=== PATIENT | female | born 1995 | race Caucasian/White ===

== ENCOUNTER → 2021-12-23 09:00 | Outpatient (BNVA) | payer OTHER, SELFPAY | PROVIDERS: Visit Provider Nurse Practitioner Women's Health | DX: N92.6 Irregular menstruation, unspecified (principal) | CPT/HCPCS: 81025 ==

== ENCOUNTER 2022-01-06 12:09 | Emergency (ER) | payer OTHER, SELFPAY ==
[2022-01-06 12:22] VITALS: BP 135/80; PULSE 84; RESP 16; TEMP 37.2; O2SAT 100; BMI 40.4
--- NOTE | 2022-01-06 12:27 | US_ITS ---
WS: [id number] ULTRASOUND EARLY TECHNIQUE: Transabdominal sonography of the pelvis was performed. Followed by transvaginal sonography to better evaluate the uterus and ovaries. CLINICAL INFORMATION: LMP: 11/04/2021 Beta hCG: Unknown. COMPARISON: None. FINDINGS: UTERUS AND GESTATIONAL SAC Intrauterine gestations: Single intrauterine gestation with cardiac activity. pole measures 2.1 cm. Estimated gestational age: 8w5d. Estimated delivery August 13, 2022 Yolk sac: 0.4 cm. [place] rump length (CRL): 2.1 cm. heart motion: 171 BPM. Subchorionic hemorrhage: Measuring 3.2 x 2.5 x 3.3 cm OVARIES Right ovary: Normal. Left ovary: Normal. FREE FLUID Small amount of free fluid US/US OB <=14 wk fetus w transvag IMPRESSION: 1. Single live intrauterine with pole. 2. Estimated gestational age; 8w5d with estimated delivery August 13, 2022 3. Subchorionic hemorrhage measuring 3.2 x 2.5 x 3.3 cm. Recommend short inter sharon follow-up 4. Normal adnexa. 5. Small amount of free fluid in the cul-de-sac and cervical canal.
[2022-01-06] MEDS: acetaminophen 500 mg Tablet PO (12:35)
[2022-01-06] MEDS: sodium chloride 0.9% 1,000 ML 999 ML IV (12:36)
--- NOTE | 2022-01-06 12:36 | ED_ITS ---
HPI - General Adult General: Chief complaint: Back Pain/Injury Stated complaint: 9 weeks , abd pains Time Seen by Provider: 01/06/22 12:27 History of Present Illness: Patient is a 26-year-old female G3, P1 with history of prior appendectomy presenting to the emergency room with acute onset of right lower quadrant pain since 5 PM yesterday. Patient already she was going to the bathroom and suddenly developed pain and discomfort in the right RLQ. Patient denies any associate nausea/vomiting, fever/chills, new vaginal discharge/bleeding, or urinary complaints. Patient has no prior history of renal colic. Patient has a prior history of appendectomy a few years ago. Bryan myrick denies any change in p.o. intake, diarrhea, melena/hematochezia. 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 Patient was told to come to the emergency room for evaluation of the . Patient has yet to establish care with Dr. Morales. Patient is 9 weeks based on LMP. Onset: 9pm yesterday Duration:1 day Location:home Severity:moderate Associated symptoms: Deny chest pain, dyspnea, nausea, rash, palpitations or vomiting Review of Systems Const: Denies: fever(s) or chills Eyes: Denies: change in vision ENMT: Denies: mouth pain Card: Denies: chest pain or palpitations Resp: Denies: dyspnea or non-productive cough GI: Reports: abdominal pain (+RLQ abd pain); Denies: nausea, vomiting or diarrhea : Denies: dysuria Musc: Denies: extremity pain Skin/Breast: Denies: rash or new lesions Neuro: Denies: weakness in extremities Psych: Reports: other (Normal mood) Yemi/Lymph: Denies: easy bruising PFSH ED PFSH: Medical History History of gestational hypertension developed in the third (2014), approx 24 weeks. Treated with Magnesium daily. Delivered at 37 weeks. Uncertain if she developed Pre- Eclampsia. Hypothyroid diagnosed in 2016, was placed on medication, stopped taking in 2018- she had labs done and she reports labs were normal and she has not taken any medication since that time Irregular menses resolved 2020 No pertinent past medical history neghx: htn,dm,dvt/pe PCP: Mtn. Shayy Dodson Surgical History History of laparoscopic appendectomy (~06/2021) also had nodule taken off colon Hx laparoscopic cholecystectomy (~2011) Hx of wisdom tooth extraction (~2010) Family History Grandfather Diabetes Paternal Father Heart disease Hypercholesteremia Hypertension Thyroid disease Mother Hypertension Grandmother Stroke Paternal Denies family history of Colon cancer Ovarian cancer Breast cancer Uterine cancer Physical Exam Const: COMMON NORMALS: alert HENMT: COMMON NORMALS: atraumatic HEAD & SCALP: atraumatic MOUTH: moist mucous membranes not abnormal Eye: COMMON NORMALS: EOMs intact bilaterally and conjunctivae normal CONJUNCTIVA: Yes conjunctivae normal Neck/C-Spine: COMMON NORMALS: full ROM and supple Resp: COMMON NORMALS: normal respiratory effort and clear to auscultation bilaterally AUSCULTATION: clear to auscultation bilaterally Cardio: COMMON NORMALS: regular rate RATE: regular rate GI: COMMON NORMALS: Soft to palpation PALPATION: Yes Soft to palpation OTHER: + mild focal RLQ TTP. NO guarding rebound, guarding, rigidity. No CVA tenderness to percussion. Neg Singh/Neg McBurney's point tenderness, no suprabupic tenderness to palpation. Extremity: COMMON NORMALS: full ROM Neuro: SENSORIUM/ORIENTATION: Yes alert MOTOR EXAM: No Abnormal motor strength present and Other motor observations present (no focal motor deficits) Psych: COMMON NORMALS: speech normal SPEECH: Yes normal speech MOOD & AFFECT: Yes euthymic mood Course Vital Signs: Vital signs: Vital Signs Temperature 98.9 F 01/06/22 12:22 Pulse Rate 84 01/06/22 12:22 Respiratory Rate 16 01/06/22 12:22 Blood Pressure 135/80 01/06/22 12:22 Pulse Oximetry 100 01/06/22 12:22 MDM - General Adult Medical Decision Making 26-year-old female G3, P1 with history of prior appendectomy at 9 weeks based on LMP presenting to emergency with sudden onset of right lower quadrant dull pain x1 day worse with movement. On exam, she has mild tenderness palpation. Ultrasound showed IUP with subchorionic bleeding. She is Rh+ will not give RhoGAM for subchorionic bleed. Patient instructed to follow with Dr. Frederick for further evaluation as she is high risk for miscarriage given subchorionic bleed. Patient verbalized understanding will follow with Dr. Beltre. I have given patient follow up with our shelter case manager to be seen by Dr. Beltre for subchorionic bleeding with IUP. Patient aware of a call from our shelter case manager to schedule for appointment(s) and verbalizes understanding of the importance of following up. Rx: tylenol PRN pain Disposition: Discharge. Patient counseled regarding diagnostic impression, treatment plan. Patient given ED strict return precautions to return for continuation, worsening, or development of new symptoms. Instructed to f/u w/ Dr. Beltre regarding symptoms today. Patient verbalized understanding. Lab Data : 01/06/22 12:40 01/06/22 12:40 Radiology Impressions Obstetrics Ultrasound 01/06/22 12:27 IMPRESSION: 1. Single live intrauterine with pole. 2. Estimated gestational age; 8w5d with estimated delivery August 13, 2022 3. Subchorionic hemorrhage measuring 3.2 x 2.5 x 3.3 cm. Recommend short interval follow-up 4. Normal adnexa. 5. Small amount of free fluid in the cul-de-sac and cervical canal. Laboratory Results WBC 9.6 10^3/uL (4.0-10.0) 01/06/22 12:40 RBC 3.59 10^6/uL (4.1-5.3) L 01/06/22 12:40 Hgb 11.1 g/dL (11.5-15.3) L 01/06/22 12:40 Hct 33.9 % (37.0-47.0) L 01/06/22 12:40 MCV 94.4 fl (81-99) 01/06/22 12:40 MCH 30.9 pg (28.0-34.0) 01/06/22 12:40 MCHC 32.7 g/dL (30.0-36.0) 01/06/22 12:40 RDW 12.2 % (12.1-15.1) 01/06/22 12:40 Plt Count 241 10^3/cmm (130-400) 01/06/22 12:40 MPV 10.1 fL (7.4-10.4) 01/06/22 12:40 Neut % (Auto) 72.5 % 01/06/22 12:40 Lymph % (Auto) 20.4 % 01/06/22 12:40 Taylor % (Auto) 5.1 % 01/06/22 12:40 Eos % (Auto) 1.5 % 01/06/22 12:40 Baso % (Auto) 0.4 % 01/06/22 12:40 Neut # (Auto) 6.92 10^3/uL (1.8-7.7) 01/06/22 12:40 Lymph # (Auto) 2.0 10^3/uL (0.8-4.8) 01/06/22 12:40 Taylor # (Auto) 0.5 10^3/uL (0.2-0.9) 01/06/22 12:40 Eos # (Auto) 0.1 10^3/uL (0.0-0.8) 01/06/22 12:40 Baso # (Auto) 0.0 10^3/uL (0.0-0.1) 01/06/22 12:40 Nucleated RBC % (auto) 0 % 01/06/22 12:40 Nucleated RBCs # 0.0 /100WBC 01/06/22 12:40 Sodium 135 mmol/L (136-145) L 01/06/22 12:40 Potassium 3.8 mmol/L (3.5-5.1) 01/06/22 12:40 Chloride 102 mmol/L (98-107) 01/06/22 12:40 Carbon Dioxide 21 mmol/L (22-29) L 01/06/22 12:40 Anion Gap 15.8 (5-19) 01/06/22 12:40 BUN 10 mg/dL (6-20) 01/06/22 12:40 Creatinine 0.5 mg/dL (0.5-0.9) 01/06/22 12:40 GFR Calculation 146.9 mL/min (90-130) H 01/06/22 12:40 Glucose 92 mg/dL (65-115) 01/06/22 12:40 Calculated Osmolality 279 mOsm/kg (285-295) L 01/06/22 12:40 Calcium 8.3 mg/dL (8.5-10.5) L 01/06/22 12:40 Total Bilirubin 0.2 mg/dL (0.15-1.2) 01/06/22 12:40 AST 15 U/L (0-32) 01/06/22 12:40 ALT 21 U/L (0-33) 01/06/22 12:40 Alkaline Phosphatase 45 IU/L (35-105) 01/06/22 12:40 C-Reactive Protein 12.2 mg/L (0.0-4.9) H 01/06/22 12:40 Total Protein 6.4 g/dL (6.6-8.7) L 01/06/22 12:40 Albumin 4.1 g/dL (3.5-5.2) 01/06/22 12:40 Globulin 2.3 g/dL (1.3-4.6) 01/06/22 12:40 Lipase 30 U/L (13-60) 01/06/22 12:40 Ser , Semi-Qnt 499574.00 mIU/mL 01/06/22 12:40 Urine Color Yellow (Yellow) 01/06/22 13:05 Urine Appearance Clear (CLEAR) 01/06/22 13:05 Urine pH 5 (5-7) 01/06/22 13:05 Ur Specific [place] 1.025 (1.005-1.030) 01/06/22 13:05 Urine Protein Neg (Negative) 01/06/22 13:05 Urine Glucose (UA) Norm (Normal) 01/06/22 13:05 Urine Ketones Negative (Negative) 01/06/22 13:05 Urine Blood Neg (Negative) 01/06/22 13:05 Urine Nitrate Negative (Negative) 01/06/22 13:05 Urine Bilirubin Neg (Negative) 01/06/22 13:05 Urine Urobilinogen Norm mg/dL (Negative) 01/06/22 13:05 Ur Leukocyte Esterase Negative (Negative) 01/06/22 13:05 Blood Type O Positive 01/06/22 13:45 Rho(D) Type Positive 01/06/22 13:45 Discharge Plan Discharge Patient Disposition: Home Clinical Impression: Abdominal pain during intrauterine Condition: Stable Prescriptions: New acetaminophen 500 mg tablet 500 mg PO Q6H PRN (Reason: pain) 5 Days Qty: 20 0RF No Action Gummies 400 mcg-35 mg- 25 mg-5 mg tablet,chewable 1 tab PO QAM 0RF Tylenol 325 mg Tablet 325 mg PO QID PRN (Reason: Pain) 0RF Unisom (doxylamine) 25 mg Tablet 25 mg PO BEDTIME 0RF Discharge Orders: Discharge ED (Routine); Ordered 01/06/22 Ordered By: Pito Nuñez Discharge Diet: Advance as tolerated Discharge Activity: Increase activity as tolerated Patient Instructions: Abdominal Pain (ED) Activity Restrictions/Additional Instructions: Please come back if you have any worsening abdominal pain, fever or chills, nausea or vomiting, diarrhea, blood in the stool, inability hold down liquid or solids, or any new concerning complaints. Coding Level of Care Code ED Hard Tile Setter Apprentice for Stuartg Fwd Exam Comprehensive
[2022-01-06 12:57] LABS: Basophils % 0.4 %; Eosinophils # 0.1 10^3/uL (0.0-0.8); Eosinophils % 1.5 %; Hematocrit 33.9 % (37.0-47.0); Hemoglobin 11.1 g/dL (11.5-15.3); Lymphocytes % 20.4 %; Mean Corpuscular HGB Conc 32.7 g/dL (30.0-36.0); Mean Corpuscular Hemoglobin 30.9 pg (28.0-34.0); Mean Corpuscular Volume 94.4 fl (81-99); Mean Platelet Volume 10.1 fL (7.4-10.4); Monocytes # 0.5 10^3/uL (0.2-0.9); Monocytes % 5.1 %; Neutrophils # 6.92 10^3/uL (1.8-7.7); Neutrophils % 72.5 %; Nucleated Red Blood Cells % 0 %; Platelet Count 241 10^3/cmm (130-400); Red Blood Count 3.59 10^6/uL (4.1-5.3); Red Cell Distribution Width 12.2 % (12.1-15.1); White Blood Count 9.6 10^3/uL (4.0-10.0)
[2022-01-06 13:14] LABS: Alanine Aminotransferase 21 U/L (0-33); Albumin Level 4.1 g/dL (3.5-5.2); Alkaline Phosphatase 45 IU/L (35-105); Anion Gap 15.8 (5-19); Aspartate Amino Transferase 15 U/L (0-32); Blood Urea Nitrogen 10 mg/dL (6-20); C Reactive Protein 12.2 mg/L (0.0-4.9); Calcium 8.3 mg/dL (8.5-10.5); Carbon Dioxide 21 mmol/L (22-29); Chloride 102 mmol/L (98-107); Globulin 2.3 g/dL (1.3-4.6); Glomerular Filtration Rate 146.9 mL/min (90-130); Glucose 92 mg/dL (65-115); Lipase 30 U/L (13-60); Osmolality Calculated 279 mOsm/kg (285-295); Potassium 3.8 mmol/L (3.5-5.1); Sodium 135 mmol/L (136-145); Total Bilirubin 0.2 mg/dL (0.15-1.2); Total Protein 6.4 g/dL (6.6-8.7)
[2022-01-06 13:49] LABS: Add Urine Microscopic? NO; Charge for UA Resulting for Rev
[2022-01-06 13:56] LABS: Glucose Urine UA Norm (Normal); Protein Urine Neg (Negative); Specific Gravity, Urine 1.025 (1.005-1.030); Urine Appearance Clear (CLEAR); Urine Color Yellow (Yellow); pH Urine 5 (5-7)
[2022-01-06 13:57] LABS: Bilirubin Urine Neg (Negative); Blood Urine Neg (Negative); Ketones Urine Negative (Negative); Leukocyte Esterase Urine Negative (Negative); Nitrate Urine Negative (Negative); Urobilinogen Urine Norm (Negative)
[2022-01-06 14:27] VITALS: BP 136/64; PULSE 68; RESP 18; TEMP 36.6; O2SAT 96
--- NOTE | 2022-01-07 12:33 | DCPLANNER ---
Addendum entered by Huma Dave 01/16/22 10:34: Patient had a follow up appointment scheduled for 01.14.22 with [facility] - patient did attend appointment. Original Note: recruitment manager had message to schedule a follow up appointment for patient with [facility]. recruitment manager sent patients information to the front office staff at [facility]. Patients information will be printed and reviewed. Clinic will call patient with appointment information.
== END 2022-01-06 14:36 | disposition home or self-care (01) ==
PROVIDERS: Emergency Provider Emergency Medicine
DX: O26.891 Other specified pregnancy related conditions, first trimester (principal); Z3A.09 9 weeks gestation of pregnancy; R10.9 Unspecified abdominal pain
CPT/HCPCS: 76801; 76817; 80053; 81003; 83690; 84702; 85025; 86140; 86900; 96360; 99284; J7030

== ENCOUNTER → 2022-01-14 14:17 | Outpatient (BNVA) | payer OTHER, SELFPAY | PROVIDERS: Visit Provider Obstetrics & Gynecology | DX: Z34.90 Encounter for supervision of normal pregnancy, unspecified, unspecified trimester (principal) | CPT/HCPCS: 80053; 80307; 82570; 82607; 82728; 82746; 82950; 83550; 84156; 84315; 84443; 84550; 85027; 86592; 86762; 86803; 86850; 86900; 87086; 87340; 87806 ==

== ENCOUNTER → 2022-02-04 08:50 | Outpatient (BNVA) | payer OTHER, SELFPAY | PROVIDERS: Visit Provider Obstetrics & Gynecology | DX: O09.90 Supervision of high risk pregnancy, unspecified, unspecified trimester (principal); Z12.4 Encounter for screening for malignant neoplasm of cervix; F41.9 Anxiety disorder, unspecified; F32.A Depression, unspecified; O99.330 Smoking (tobacco) complicating pregnancy, unspecified trimester; O99.210 Obesity complicating pregnancy, unspecified trimester; Z87.59 Personal history of other complications of pregnancy, childbirth and the puerperium; O99.019 Anemia complicating pregnancy, unspecified trimester; Z3A.00 Weeks of gestation of pregnancy not specified | CPT/HCPCS: 84315; 87491; 87591; 87624 ==

== ENCOUNTER 2025-04-02 12:44 | Emergency (ER) | payer OTHER, SELFPAY ==
[2025-04-02 12:51] VITALS: BP 129/76; PULSE 70; RESP 16; TEMP 36.7; O2SAT 100; BMI 32.4
--- NOTE | 2025-04-02 13:05 | ED_ITS ---
HPI - Fall General: Chief Complaint: Fall Stated Complaint: fall, hit head, L shoulder and knee pain Time Seen by Provider: 04/02/25 13:02 Source: patient Mode of arrival: ambulatory Limitations: no limitations History of Present Illness: 29-year-old female who states that she h ad tripped over a cord upstairs and fell states she had landed on her left side she states she hit her left knee and also hit her head she had a headache and nausea since then also some left knee pain. She states she hit her left shoulder when she fell as well but has no pain in that shoulder at this time. Denies any neck pain denies any loss of consciousness Associated symptoms-after fall: Reports headache(s); Denies abdominal pain, chest pain or neck pain Related Data Home Medications ?Medication ?Instructions ?Recorded ?Confirmed PNV 153-FA 400 mcg-om3 35 mg-dha 1 tab PO QAM 12/23/21 02/04/22 25 mg-epa 5 mg-fish oil chew tablet ( Gummies) acetaminophen 325 mg tablet 325 mg PO QID PRN Pain 02/04/22 (Tylenol) doxylamine succinate 25 mg tablet 25 mg PO BEDTIME 02/04/22 (Unisom (doxylamine)) Allergies Allergy/AdvReac Type Severity Reaction Status Date / Time amoxicillin Allergy Mild ALGY-Difficulty Verified 04/02/25 12:53 Swallowing-can take keflex Review of Systems Const: Denies: fever(s), chills, body aches or change in appetite ENMT: Denies: throat pain or dental pain Card: Denies: chest pain Resp: Denies: dyspnea GI: Denies: abdominal pain, nausea, vomiting or diarrhea Musc: Reports: extremity pain; Denies: neck pain or back pain Skin/Breast: Denies: rash Neuro: Reports: headache(s) PFSH ED PFSH: Medical History Anxiety and depression Reports having symptoms as a teenager and being on medication. States that no medication worked for her and she has not been on any medication since at least the age of 18. No pertinent past medical history Denies diabetes, asthma, hypertension, seizures, DVT/PE PCP: Mtn. Shayy Dodson Hypothyroid diagnosed in 2017, was placed on medication, stopped taking in 2019- she had labs done and she reports labs were normal and she has not taken any medication since that time Surgical History History of laparoscopic appendectomy (~06/2021) also had nodule taken off colon Hx laparoscopic cholecystectomy (~2011) Hx of wisdom tooth extraction (~2010) Family History Grandfather Diabetes Paternal Father Heart disease Hypercholesteremia Hypertension Thyroid disease Mother Hypertension Grandmother Stroke Paternal Denies family history of Colon cancer Ovarian cancer Breast cancer Uterine cancer Female Reproductive History: Date of last menstrual period: 03/27/25 Physical Exam Const: COMMON NORMALS: no acute distress, patient oriented x3 and healthy appearing HENMT: COMMON NORMALS: normocephalic HEAD & SCALP: normocephalic OTHER: Hematoma noted to left scalp slight tenderness no lacerations Eye: COMMON NORMALS: Equal, round and reactive pupils present and EOMs intact bilaterally PUPIL: Yes Equal, round and reactive pupils present Neck/C-Spine: COMMON NORMALS: full ROM and supple Chest: COMMONS NORMALS: normal inspection of the chest Resp: COMMON NORMALS: normal respiratory effort Cardio: COMMON NORMALS: regular rate, regular rhythm and No murmurs present (Cardio) RATE: regular rate RHYTHM: regular rhythm Extremity: NARRATIVE EXTREMITY EXAM: Tenderness noted to left knee no obvious deformities able ambulate Neuro: COMMON NORMALS: patient oriented x3, moves all extremities and no focal motor deficits Psych: COMMON NORMALS: mental status grossly normal, Normal thought process present and cooperative THOUGHT PROCESS: Normal thought process present Skin: COMMON NORMALS: no rashes or lesions noted and no wounds GENERAL SKIN EXAM: no rashes or lesions noted Course Vital Signs: Vital signs: Vital Signs Temperature 98.0 F 04/02/25 12:51 Pulse Rate 70 04/02/25 12:51 Respiratory Rate 16 04/02/25 12:51 Blood Pressure 129/76 04/02/25 12:51 Pulse Oximetry 100 04/02/25 12:51 Oxygen Delivery Me thod Room Air 04/02/25 12:51 MDM - Fall Medical Decision Making Patient presents here with closed head injury after a fall also knee contusion imaging here is all normal she is ambulatory no signs of neck injury she stable for discharge follow-up PCP return if worsening. Medical Records I reviewed the patient's medical records. Lab Data Radiology Impressions Head CT 04/02/25 13:05 IMPRESSION: 1. No evidence of intracranial hemorrhage or mass effect. 2. No acute intracranial findings. All radiology interpretation(s) finalized by discharge Discharge Plan Discharge Patient Disposition: Home Clinical Impression: Fall, Closed head injury Condition: Stable Prescriptions: No Action Gummies 400 mcg-35 mg- 25 mg-5 mg tablet,chewable 1 tab PO QAM Tylenol 325 mg Tablet 325 mg PO QID PRN (Reason: Pain) Unisom (doxylamine) 25 mg Tablet 25 mg PO BEDTIME Discharge Orders: Discharge ED (Routine); Ordered 04/02/25 Ordered By: María Elena Allen Referrals: Shane Roy [Primary Care Provider, [facility]] Discharge Diet: Advance as tolerated Discharge Activity: Resume usual activity Patient Instructions: Head Injury (ED) Print Language: Icelandic Coding Level of Care Code ED Accordion Repairer for Sadiq Mclain
--- NOTE | 2025-04-02 13:05 | XRR_ITS ---
PROCEDURE INFORMATION: Exam: XR Left Knee Exam date and time: 04/02/2025 1:09 PM Age: 29 years old Clinical indication: Injury or trauma; Fall; Blunt trauma; Knee; Left TECHNIQUE: Imaging protocol: Radiologic exam of the left knee. Views: 3 views. COMPARISON: No relevant prior studies available. FINDINGS: Bones/joints: Normal. No fracture or dislocation. Soft tissues: Normal. XR/XR knee LT 3V* [id number] IMPRESSION: No acute findings.
--- NOTE | 2025-04-02 13:05 | CT_ITS ---
WS: [id number] CT HEAD TECHNIQUE: Noncontrast CT of the head obtained from the skullbase to the vertex. CLINICAL INFORMATION: head injury COMPARISON: None. DLP: 1181.[address] scans at [facility] use at least one of these dose optimization techniques: automated exposure control; mA and/or kV adjustment per patient size (includes targeted exams where dose is matched to clinical indication); or iterative reconstruction. FINDINGS: No evidence of intracranial hemorrhage or mass effect. Ventricular system and basal cisterns are patent. No extra-axial fluid collections. No evidence of mass or mass effect. Normal barraza-white differentiation. Paranasal sinuses and mastoid air cells are well aerated. .Normal visualized soft tissues. CT/CT head wo con* [id number] IMPRESSION: 1. No evidence of intracranial hemorrhage or mass effect. 2. No acute intracranial findings.
[2025-04-02] MEDS: ondansetron hcl ODT 4 mg Tab PO (13:09)
[2025-04-02 14:20] VITALS: BP 126/81; PULSE 73; RESP 18; O2SAT 100
== END 2025-04-02 14:21 | disposition home or self-care (01) ==
PROVIDERS: Emergency Provider Emergency Medicine; PCP Family Medicine
DX: S09.8XXA Other specified injuries of head, initial encounter (principal); W01.0XXA Fall on same level from slipping, tripping and stumbling without subsequent striking against object, initial encounter
CPT/HCPCS: 70450; 73562; 99284; J9999; Q0162